=== PATIENT | male | born 1980 | race Caucasian/White ===

== ENCOUNTER 2017-06-03 21:11 | Emergency (ER) | payer OTHER ==
[~2017-06-03] VITALS: Ht 167.6 cm; Wt 68.2 kg
[~2017-06-03 21:11] MED LIST: EXCEDRIN MIGRA1 EAC3 PO; IBUPROFEN400 MG PO; MOTRIN600 MG PO; ZOFRAN4 MG PO; ZYRTEC10 M2 PO
[2017-06-03 23:42] VITALS: BP 146/112
== END 2017-06-03 23:50 | disposition home or self-care (01) ==
LOC: EME 21:11
DX: S06.0X1A Concussion with loss of consciousness of 30 minutes or less, initial encounter (principal); S00.83XA Contusion of other part of head, initial encounter; W17.89XA Other fall from one level to another, initial encounter; Y93.21 Activity, ice skating
CPT/HCPCS: 70450; 70486; 72125; 99281; 99283